=== PATIENT | female | born 1950 | race Two or more races ===

== ENCOUNTER → 2025-01-18 | Outpatient (CLI) | payer OTHER, MEDICARE, SELFPAY ==
--- NOTE | 2025-01-18 14:00 | XR_ITS ---
Examination: Breast ultrasound complete, bilateral Date and time of exam: January 18, 2025 1415 hours INDICATIONS: Outside prior mammogram performed no results obtained, family history breast cancer, sister Technique: Real-time grayscale ultrasonographic imaging bilateral breasts, including all 4 quadrants as well as nipple retroareolar and axillary regions. Findings: Sonographic images right breast 11:00 cyst 6 x 7 mm Retroareolar cyst 3 x 3 mm No solid nodules Sonographic images left breast Multiple benign cysts, the largest in the 12:00 position 10 x 5 mm No solid nodules IMPRESSION: BI-RADS Category 2: Benign findings
== END | disposition home or self-care (01) ==
PROVIDERS: PCP Behavior Technician; Referring Provider Behavior Technician; Visit Provider Behavior Technician
DX: R92.8 Other abnormal and inconclusive findings on diagnostic imaging of breast (principal); Z80.3 Family history of malignant neoplasm of breast
CPT/HCPCS: 76641